=== PATIENT | male | born 1960 | race Caucasian/White ===

== ENCOUNTER → 2019-09-15 | Outpatient (CLI) | payer BC ==
[~2019-09-15] MED LIST: GLIMEPIRIDE4 MG PO; METFORMIN HCL500 MG PO
--- NOTE | 2019-09-15 14:59 | Diagnostic Imaging Report ---
EXAMINATION: SACRUM X-RAY, SP LUMBAR, COMPLETE MIN 4VW INDICATION: Back pain COMPARISON: None FINDINGS: Lumbar spine: No compression fracture. Vertebral body heights are intact. Grade 1 anterolisthesis at L4-5 without definite spondylolysis. Mild lower lumbar spine and multilevel degenerative changes with facet arthropathy. Sacrum: No acute fracture or dislocation. Alignment appears anatomic. IMPRESSION: No compression fracture. Grade 1 anterolisthesis at L4-5 without definite associated spondylolysis. Signed by: Paulino Hawkins MD on 09/15/2019 2:56 PM
== END ==
LOC: RAD 13:25
PROVIDERS: ATTEND Internal Medicine
DX: M47.27 Other spondylosis with radiculopathy, lumbosacral region (principal)
CPT/HCPCS: 72110; 72220

== ENCOUNTER → 2020-07-30 | Outpatient (CLI) | payer BC | LOC: RAD 16:15 | PROVIDERS: ATTEND Internal Medicine | DX: R10.9 Unspecified abdominal pain (principal); K59.00 Constipation, unspecified | CPT/HCPCS: 74018 ==

== ENCOUNTER → 2021-02-05 | Day surgery (SDC) | payer BC ==
[~2021-02-05] MED LIST changes: +FENTANYL CITRATE/PF 100MCG/2 ML INJ ONE; +LISINOPRIL10 MG PO; +MIDAZOLAM HCL 2 MG/2 ML VIAL ONE; +PRAVACHOL20 MG PO; +PROPOFOL IV EMULSION 10 MG/ML 20 ML VIAL ONE
== END | disposition home or self-care (01) ==
LOC: OR 08:46
PROVIDERS: ATTEND Internal Medicine Gastroenterology
DX: K22.10 Ulcer of esophagus without bleeding (principal); K63.5 Polyp of colon; K29.70 Gastritis, unspecified, without bleeding; K59.00 Constipation, unspecified; K57.30 Diverticulosis of large intestine without perforation or abscess without bleeding; R19.5 Other fecal abnormalities; K63.89 Other specified diseases of intestine; K64.8 Other hemorrhoids; E11.9 Type 2 diabetes mellitus without complications; I10 Essential (primary) hypertension; E78.00 Pure hypercholesterolemia, unspecified; Z01.810 Encounter for preprocedural cardiovascular examination; Z01.812 Encounter for preprocedural laboratory examination; Z20.822 Contact with and (suspected) exposure to COVID-19; Z79.84 Long term (current) use of oral hypoglycemic drugs; Z79.82 Long term (current) use of aspirin; Z68.31 Body mass index [BMI] 31.0-31.9, adult
CPT/HCPCS: 36415; 43239; 45380; 45384; 45385; 82948; 93005; J2704; U0002; J2250; J3010